=== PATIENT | male | born 1995 | race Caucasian/White ===

== ENCOUNTER 2017-05-10 20:38 | Emergency (ER) | payer OTHER ==
[2017-05-10 21:05] VITALS: BP 136/69; PULSE 85; TEMP 98.9; BMI 34.3
[2017-05-10] MEDS ORDERED: IBUPROFEN 400 MG TABLET (FP) PO ONE ×2 (21:31→21:32)
--- NOTE | 2017-05-10 21:38 | PDOC ---
History of Present Illness - General Chief Complaint: Laceration Stated Complaint: HEAD INJURY Time Seen by Provider: 05/10/17 21:07 History Source: Patient - History of Present Illness Timing/Duration: reports: 4-6 hours Past History - Past Medical History Allergies/Adverse Reactions: Allergies Allergy/AdvReac Type Severity Reaction Status Date / Time No Known Allergies Allergy Verified 05/10/17 21:05 Home Medications: Ambulatory Orders NK [No Known Home Medication] 05/10/17 - Psycho/Social/Smoking Cessation Hx Suicidal Ideation: No Smoking History: Never smoked Have you smoked in the past 12 months: No Information on smoking cessation initiated: No Hx Alcohol Use: No Review of Systems - Review of Systems HEENTM: No: Blurred Vision ABD/GI: No: Nausea, Vomiting Neurological: No: Headache, Dizziness *Physical Exam - Vital Signs Last Vital Signs Temp Pulse Resp BP Pulse Ox 98.9 F 85 18 136/69 98 05/10/17 20:58 05/10/17 20:58 05/10/17 20:58 05/10/17 20:58 05/10/17 20:58 - Physical Exam General Appearance: Yes: Appropriately Dressed. No: Apparent Distress HEENT: positive: Normal Voice, Other (~1.5 cm, superficial lac to R confucianist) Neck: positive: Supple Respiratory/Chest: negative: Respiratory Distress Integumentary: positive: Dry, Warm Neurologic: positive: Fully Oriented, Alert, Normal Mood/Affect, Motor Strength 5/5 Procedures - Laceration/Wound Repair Head Wound Length: to 2.5 cm Wound Explored: clean Wound's Depth, Shape: superficial Irrigated w/ Saline: Yes Betadine Prep: Yes Wound Repaired With: [place] (5) Medical Decision Making - Medical Decision Making 05/10/17 21:40 21-year-old male, no significant history here with scalp laceration. Patient states while playing basketball tonight him and another player actually collided heads. Patient denies LOC, dizziness, visual changes or nausea, vomiting. See exam Scalp lac 2/2 minor head injury -tetanus UTD -pain control -lac repair -wound check as needed in 48 hrs 05/10/17 21:43 *DC/Admit/Observation/Transfer Diagnosis at time of Disposition: Scalp laceration Qualifiers: Encounter type: initial encounter Qualified Code(s): S01.01XA - Laceration without foreign body of scalp, initial encounter - Discharge Dispostion Disposition: HOME Condition at time of disposition: Good - Patient Instructions Printed Discharge Instructions: DI for Laceration Repair, DI for Closed Head Injury Additional Instructions: Keep dressing in place for at least 24 hours after which one can be opened to air. You can gently cleaned wound with mild soap and water after 24 hours to prevent crusting over the arjun. You can also apply an antibiotic ointment twice a day until sutures are removed. Return for redness, discharge or fever Arjun are removed in 8-14 days Return to ED for worsening headache, dizziness, visual changes of vomiting
== END 2017-05-10 21:43 | disposition home or self-care (01) ==
LOC: JERFT 20:38
PROC: 0HQ0XZZ Repair Scalp Skin, External Approach (ICD-10-PCS; principal; 2017-05-10)
DX: S01.01XA Laceration without foreign body of scalp, initial encounter (principal); W50.0XXA Accidental hit or strike by another person, initial encounter; Y93.67 Activity, basketball; Y92.310 Basketball court as the place of occurrence of the external cause
CPT/HCPCS: 99281-25

== ENCOUNTER 2019-01-08 09:31 | Day surgery (SDC) | payer OTHER ==
[2019-01-07 11:06] VITALS: BMI 32.5
[2019-01-08] MEDS ORDERED: MIDAZOLAM HCL 2 MG/2 ML SINGLE DOSE VIAL ONE ×2 (11:01)
[2019-01-08] MEDS ORDERED: SUCCINYLCHOLINE CHLORIDE 200 MG/10 ML VIAL ONE (11:05)
[2019-01-08] MEDS ORDERED: ceFAZolin SODIUM 1 GM VIAL IVPB ONE (11:49)
[2019-01-08] MEDS ORDERED: PROPOFOL 20 ML ONE ×2 (11:50)
[2019-01-08] MEDS ORDERED: MEPERIDINE HCL 25 MG/ML VIAL ONE (13:51)
[2019-01-08] MEDS ORDERED: ACETAMINOPHEN INJECTION 100 ML IVPB ONE (13:51)
[2019-01-08] MEDS ORDERED: MEPERIDINE HCL 25 MG/ML VIAL IVPUSH ONE (13:53)
[2019-01-08] MEDS ORDERED: ONDANSETRON 4 MG/2 ML VIAL IVPUSH PRN (13:53)
[2019-01-08] MEDS ORDERED: oxyCODONE HCL 5 MG TABLET PO PRN (13:53)
[2019-01-08] MEDS ORDERED: ACETAMINOPHEN 1000 MG/100 ML VIAL (NON FORMULARY) IVPB ONE (13:54)
[2019-01-08] MEDS ORDERED: LACTATED RINGERS SOLUTION 1,000 ML IV SCH (14:00)
--- NOTE | 2019-01-08 14:22 | OP ---
DATE OF OPERATION: 01/08/2019 PREOPERATIVE DIAGNOSIS: Bladder stone. POSTOPERATIVE DIAGNOSIS: Urethral stricture and bladder stone. ATTENDING SURGEON: Gurwinder Ashby MD ANESTHESIA: General by LMA. PROCEDURE: Direct vision internal urethrotomy and laser litholopaxy of bladder stone. DESCRIPTION OF OPERATIVE PROCEDURE: The patient was brought into the operating room, a time-out was performed, and IV Ancef administered. He was then carefully placed in the lithotomy and then prepped and draped in a usual sterile fashion. The 23-Jamaican continuous-flow cystoscope was initially passed; however, in the region of the membranous urethra, the patient was noted to have multiple concentric strictures which precluded passage of the instrument. The instrument was removed and under direct vision the urethrotome was then brought into the field. A wire was passed through the side port and advanced through the urethra and with the confirmation of the appropriate channel an incision was made in 2 strictures to the 12 oclock position. An urethrotome was then advanced easily into the bladder. The stone previously seen on x-ray was noted. The urethrotome was then removed and once again the 23-Jamaican continuous flow cystoscope was passed under vision at this time traversing the area of the previous stricture. The prostatic urethra was only 2 cm in length. There was no narrowing or abnormalities at the bladder neck. The bladder itself appeared fairly normal; however, a large approximately 3-1/2-cm stone was noted. A 550 micron fiber was then passed through the cystoscope and fragmentation was initiated and continued until only small pieces of stone were present. These were then irrigated from the bladder and a number of the larger fragments which would not irrigate easily were then removed by the grasping forceps. Inspection of the bladder at the completion of the procedure revealed no evidence for any injury to the bladder and no residual stones. The cystoscope was removed and a 20-Vicente easily now inserted and left to straight drainage. No significant blood loss. No complications. The patient tolerated the procedure well and left the OR in stable satisfactory condition. MD [employer]/[id number]
[2019-01-08] MEDS ORDERED: oxyCODONE HCL 5 MG TABLET ONE (14:55)
[2019-01-08 15:13] VITALS: TEMP 98.5
[2019-01-08 15:47] VITALS: BP 121/74; PULSE 67
--- NOTE | 2019-01-09 18:13 | PATH ---
Surgical Pathology Report Patient Name: KELSEA ROBERSON [facility]. Rec. #: [id number] /Age/Gender: 1995 (Age: 23) / M Account: [id number] Location: [facility] Taken: 01/08/2019 Received: 01/08/2019 Reported: 01/09/2019 Physicians: Gurwinder Ashby MD Specimen(s) Received BLADDER STONE Clinical History Bladder stone Final Diagnosis BLADDER STONE, LASER LITHOTRIPSY: BLADDER CALCULI. MACROSCOPIC DIAGNOSIS. Electronically Signed June Luke M.D. Gross Description Received fresh labeled "bladder stone," is a 3.5 x 1.5 x 0.4 cm aggregate of durán, irregular to fragmented calculi. The specimen is sent for chemical analysis. DL/01/08/201901/08/2019
== END 2019-01-08 15:55 | disposition home or self-care (01) ==
LOC: JASU-SURG 09:31
PROVIDERS: ATTEND Urology
PROC: 0TCB8ZZ Extirpation of Matter from Bladder, Via Natural or Artificial Opening Endoscopic (ICD-10-PCS; principal; 2019-01-08 11:00)
PROC: 0TND8ZZ Release Urethra, Via Natural or Artificial Opening Endoscopic (ICD-10-PCS; 2019-01-08 11:00)
DX: N21.0 Calculus in bladder (principal); N35.919 Unspecified urethral stricture, male, unspecified site
CPT/HCPCS: 36415; 82360; 87077; 87086; 88300-TC; 94760; J0131